=== PATIENT | female | born 1940 | race Caucasian/White ===

== ENCOUNTER 2017-04-12 10:56 | Observation (INO) | payer MEDICARE, BC ==
--- NOTE | ~2017-04-12 | CN ---
Consultation Report [facility] [address] [place]. [address] NAME: STEFFANY PARKER : 42 STATUS : ADM IN [facility]#: [id number] AGE: 77 ADM/REG DATE : 04/12/17 MR#: [id number] REPORT SERV DATE: 04/12/17 DICTATED BY: CHEMO IQBAL DATE: 04/12/17 REPORT STATUS : Draft TRANSCRIBED BY: RAY DATE: 04/12/17 DATE OF CONSULTATION: REASON FOR CONSULT: Possible COPD with progressive wheezing and shortness of breath. HISTORY OF PRESENT ILLNESS: This is a 77-year-old female who had been admitted through Cardiology for chest pain. On presentation to the emergency room, the patient would have a 12-lead EKG that would demonstrate a [address]-segment elevation in the inferior leads and would be taken for emergent ST-elevated cardiac cath. Her catheterization would demonstrate no flow-limiting on evaluation and would have a preserved EF of 60%. There was no evidence of clinically significant coronary heart disease, with a CHIN grade 3 flow noted in all of the patient's major coronary vessels. The patient was noted to have progressive shortness of breath and wheezing over a three-day period. She had just taken a flight to [place] and had been producing some frothy nbevh-jk-wriaje-colored sputum with a cough for several days. The patient has a history of smoking, although she apparently has quit some time ago and has no history of severe bronchitis or pneumonia that she is aware of. Chest x-ray here at the hospital did not reveal any signs of pneumonia, although the patient does come in with a white blood cell count of 19.5 to go along with her productive cough. PAST MEDICAL HISTORY: 1. Hypertension. 2. Possible mild COPD with remote history of smoking. 3. Seasonal allergies. 4. Gout. 5. History of PVCs. PAST SURGICAL HISTORY: Appendectomy and tonsillectomy. SOCIAL HISTORY: . Retired. Former smoker. No alcohol use or illicit drug use. FAMILY HISTORY: Negative for any previous CAD or CVA. REVIEW OF SYSTEMS: 14-point inspection of systems reviewed with patient and is negative aside for what was previously mentioned. HOME MEDICATIONS: 1. Indapamide 1.25 mg p.o. daily. 2. Mag-Ox 400 mg p.o. b.i.d. 3. Lopressor 25 mg p.o. b.i.d. 4. Allopurinol 100 mg p.o. daily. 5. Zyrtec 10 mg p.o. at bedtime. 6. Aspirin 325 mg p.o. daily. 7. Multivitamin one tablet daily. 8. Vitamin B12 one tablet p.o. daily. Consultation Report [address] [place]. [address] NAME: STEFFANY PARKER : 42 STATUS : ADM IN PAT#: [id number] AGE: 77 ADM/REG DATE : 04/12/17 MR#: [id number] REPORT SERV DATE: 04/12/17 DICTATED BY: CHEMO IQBAL DATE: 04/12/17 REPORT STATUS : Draft TRANSCRIBED BY: RAY DATE: 04/12/17 9. Vitamin D3 one tablet p.o. daily. ALLERGIES: POSITIVE ALLERGY TO SULFA DRUGS. PHYSICAL EXAMINATION: VITAL SIGNS: Blood pressure 113/59, heart rate 57, respirations 26, O2 saturation 94% on 2 L nasal cannula, temperature 98.8. GENERAL: The patient is a well-developed, well-nourished female, cooperative, no apparent distress. Awake. NEURO: The patient is alert and oriented x3. Moving all extremities spontaneously. No focal deficits. NECK: No JVD. LUNGS: Expiratory wheezing bilaterally with rhonchi, worse on the right than the left. CARDIOVASCULAR: The patient with some mild bradycardia but no murmurs auscultated. Regular rhythm. ABDOMEN: Soft, nontender. Active bowel sounds. EXTREMITIES: No edema. Normal distal pulses. LABORATORY DATA: Sodium 126, potassium 4.0, chloride 90, BUN 13, creatinine 0.61, glucose 103. Calcium 9.2, magnesium 2.0. White blood cell count 19.5, hemoglobin 13.7, hematocrit 38.9, platelets 348. INR 1.1. Troponin less than 0.02. EKG: Normal sinus rhythm with no ST-elevation noted. Chest x-ray, no acute abnormality noted, although the image is a little poor. ASSESSMENT AND PLAN: 1. Chest pain with ST abnormalities, taken for emergent cardiac cath, with no flow abnormalities or stenosis noted. No further plans for workup at this time from Cardiology. The patient is currently on aspirin and beta grace. 2. Chronic obstructive pulmonary disease and bronchitis. The patient possibly has mild underlying chronic bronchitis from her history of smoking. Definitely sounds to have some acute bronchitis with her wheezing and coughing up yellow sputum. Due to her elevated white cell count of 19.5, the patient was started on antibiotic, IV Levaquin. Agree with this for now. We will continue. Agree with the patient being started on prednisone. We will go ahead and also add Pulmicort Respules inhaled as well as DuoNeb scheduled q.4 hours. Use oxygen p.r.n. and titrate to keep O2 saturation 90% to 94%. We will go ahead and also add a procalcitonin to her blood in the lab and repeat chest x-ray in the morning, PA and lateral, to get a slightly better view of her lungs tomorrow in the morning. Would also consider potentially having a pulmonary function test after exacerbation has resolved outpatient. 3. Leukocytosis. Possibly secondary to pneumonia/bronchitis, but as I look back in her records, she has previously had an elevated white blood cell count of 17.5 back in August of last year. Question whether she has some chronic leukocytosis. We will recheck CBC in the morning. 4. Hypertension, currently on metoprolol. Blood pressure is currently well controlled. Continue. Consultation Report [address] [place]. [address] NAME: STEFFANY PARKER : 42 STATUS : ADM IN [facility]#: [id number] AGE: 77 ADM/REG DATE : 04/12/17 MR#: [id number] REPORT SERV DATE: 04/12/17 DICTATED BY: CHEMO IQBAL DATE: 04/12/17 REPORT STATUS : Draft TRANSCRIBED BY: MODL DATE: 04/12/17 5. Bradycardia. The patient is on beta grace. We will monitor heart rate closely. Hold beta-grace if heart rate less than 50. 6. Hyponatremia. The patient with a sodium of 126 on thiazide diuretic at home. We will go ahead and hold her thiazide diuretic and give her 1 L of normal saline at 125 an hour. We will go ahead and check CBC and BMP in the morning. Follow up on her sodium and leukocytosis. Thank you very much for this consult. Hospitalist will follow. Do not anticipate a long hospital stay. TDR/MODL Chemo Iqbal APN / [id number] CC: Alok Palomino MD
--- NOTE | ~2017-04-12 | HP ---
History And Physical [facility] [address] [place]. [address] NAME: STEFFANY PARKER : 42 STATUS : ADM IN [facility]#: [id number] AGE: 77 ADM/REG DATE : 04/12/17 MR#: [id number] REPORT SERV DATE: 04/12/17 DICTATED BY: SANTHOSH PALOMINO DATE: 04/12/17 REPORT STATUS : Draft TRANSCRIBED BY: RAY DATE: 04/12/17 DATE OF ADMISSION: 04/12/2017 CARDIOLOGY ADMISSION HISTORY AND PHYSICAL IDENTIFYING DATA: The patient is a 77-year-old woman with no known previous cardiovascular history. CHIEF COMPLAINT: Three-day history of progressive wheezing and shortness of breath. HISTORY OF PRESENT ILLNESS: Ms. Parker is a pleasant 77-year-old woman with no previous cardiovascular history. The patient was in her usual state of health until approximately three days ago. The patient apparently took a recent plane trip from [place]. She began to notice symptoms of wheezing, shortness of breath, and generalized fatigue. She attributed this to an infection from her air travel. However, the patient's symptoms continued to progress. She does describe some chest tightness, which had worsened this morning. The patient also had some associated diaphoresis. She presented to [facility] Emergency Room for further evaluation. A 12-lead EKG demonstrated [address]-segment elevation in the inferior leads with half a mm of ST-segment depression in lead aVL. The findings met criteria for an ST-segment elevation myocardial infarction. A code STEMI was therefore called. At this time, the patient does have ongoing shortness of breath, and symptoms which are suspicious for orthopnea. She reports mild ongoing chest tightness. PAST MEDICAL HISTORY: 1. Hypertension. 2. The patient denies any other major medical problems. PAST SURGICAL HISTORY: Significant for appendectomy, cholecystectomy, and otherwise noncontributory. FAMILY HISTORY: Negative for early coronary heart disease or sudden cardiac . SOCIAL HISTORY: The patient quit smoking approximately seventeen years ago. At this time, she reports no significant tobacco, alcohol, or drug use. ALLERGIES: THE PATIENT REPORTS ADVERSE REACTIONS TO SULFA DRUGS. HOME MEDICATIONS: 1. Allopurinol 100 mg p.o. daily. 2. Aspirin 325 mg daily. 3. Zyrtec 10 mg p.o. at bedtime. 4. Indapamide 1.25 mg p.o. daily. 5. Magnesium oxide 400 mg p.o. twice daily. 6. Metoprolol tartrate 25 mg p.o. twice daily. History And Physical [address] [place]. [address] NAME: STEFFANY PARKER : 42 STATUS : ADM IN PAT#: [id number] AGE: 77 ADM/REG DATE : 04/12/17 MR#: [id number] REPORT SERV DATE: 04/12/17 DICTATED BY: SANTHOSH PALOMINO DATE: 04/12/17 REPORT STATUS : Draft TRANSCRIBED BY: RAY DATE: 04/12/17 7. Multivitamin tablet one tablet daily. 8. Cyanocobalamin over the counter one tablet daily. 9. Vitamin D3 one tablet p.o. daily. REVIEW OF SYSTEMS: A complete 12-system review was performed. This is noncontributory except for the pertinent positives and negatives noted in the history of present illness above. PHYSICAL EXAMINATION: VITAL SIGNS: Temperature is 98.8 degrees Fahrenheit, blood pressure is 107/52 mmHg, heart rate is 63 beats per minutes and regular, respirations 19, oxygen saturation is 98% on a 2 L nasal cannula. CONSTITUTIONAL: The patient is an obese elderly white woman, in no acute distress, though she is mildly tachypneic. EYES: PERRL, EOMI, clear conjunctiva. HEAD/MNT: NCAT with moist mucous membranes and grossly normal hard and soft palate. NECK: Supple with no obvious thyromegaly or lymphadenopathy CARDIOVASCULAR: There is a regular rhythm with a normal S1 and a physiologically split second heart sound. No significant murmurs, rubs, or gallops are noted. The jugular venous pressure appears grossly normal. PULMONARY: There is diffuse inspiratory and expiratory wheezing noted throughout both lung duong bilaterally. There is no dullness to percussion. There is a prolonged expiratory phase. ABDOMINAL: Soft, non-tender, non-distended with no hepatosplenomegaly noted. EXTREMITIES: No clubbing, cyanosis or edema. MUSCULOSKELETAL: Grossly normal strength and range of motion in all extremities INTEGUMENTARY: Skin appears intact with no bruises, wounds or active lesions noted NEURO/PSYC: Alert and oriented x3, with no dysarthria, facial droop or lateralizing weakness noted. 12-LEAD EK-lead EKG shows sinus bradycardia with [address]-segment elevation in leads II, III, and AVF with one-half millimeter of ST-segment depression in lead aVL. The ST- segment elevation is concave upward, however technically the EKG does meet criteria for acute inferior myocardial infarction. CHEST X-RAY: The chest x-ray shows no acute cardiopulmonary process. There is mild calcification of the aortic knob noted. The cardiomediastinal silhouette is otherwise unremarkable. LABORATORY DATA: Electrolytes show a sodium of 126, potassium 4.0, chloride is 90, CO2 is 31, BUN 13, creatinine 0.6. GFR is 88, glucose is 103, calcium is 9.2, magnesium is 2.0. The patient's initial troponin is less than 0.02. CBC shows a white blood cell count of 19.5, hemoglobin 13.7, hematocrit 39, platelets 343, [place] [address], lymphocyte count is also high at 6.8. INR is 1.1. ASSESSMENT AND PLAN: History And Physical [address] [address] NAME: STEFFANY PARKER : 42 STATUS : ADM IN [facility]#: [id number] AGE: 77 ADM/REG DATE : 04/12/17 MR#: [id number] REPORT SERV DATE: 04/12/17 DICTATED BY: SANTHOSH PALOMINO DATE: 04/12/17 REPORT STATUS : Draft TRANSCRIBED BY: RAY DATE: 04/12/17 1. Evaluation for myocardial infarction: The patient was taken for emergency cardiac catheterization. Please see full report for full details. In summary, the patient was found to have a left dominant coronary system with otherwise normal coronary anatomy. There is no evidence of clinically significant coronary heart disease with CHIN grade 3 flow noted in all of the patient's major epicardial coronary vessels. The patient's left ventricular systolic function is mildly to moderately elevated with an EDP estimated at 20 mmHg. Left ventricular systolic function is normal with no significant wall motion abnormalities noted and a left ventricular ejection fraction of approximately 55% to 60%. The patient will be treated for chronic obstructive pulmonary disease exacerbation as outlined below. 2. Suspected bronchitis pneumonia/chronic obstructive pulmonary disease exacerbation. Blood cultures x2 will be obtained. The patient will be started on Levaquin. The patient will continue on p.o. prednisone. She was given IV Solu-Medrol in the emergency room. We will start levofloxacin after blood cultures. We will consult the Hospital Medicine Service to evaluate and treat as appropriate. 3. Hyponatremia: Possibly due to dehydration. We will discontinue indapamide. We will gently rehydrate as per post cath protocol. We will consider further rehydration with IV normal saline if necessary to restore the patient's serum sodium to normal limits. Again, we will request the Hospital Medicine Service to assist with management of hyponatremia. [facility]/MODL Santhosh Palomino MD / [id number] CC: Santhosh Palomino MD
[2017-04-12] MEDS ORDERED: MAGOX4 PO (11:15)
[2017-04-12] MEDS ORDERED: INDAPAMIDE1.25 MG PO (11:15)
[2017-04-12] MEDS ORDERED: Z100 PO (11:15)
[2017-04-12] MEDS ORDERED: LOP25 PO (11:15)
[2017-04-12] MEDS ORDERED: ZYRTEC ALLGY10 MG PO (11:16)
[2017-04-12] MEDS ORDERED: CENTRUM PO (11:16)
[2017-04-12] MEDS ORDERED: ASABAYER PO (11:16)
[2017-04-12] MEDS ORDERED: CYANOCOBALAMIN PO (11:16)
[2017-04-12 11:17] LABS: ER CBC TAT 0 Hrs 05 Mins; HEMATOCRIT 38.9 % (36.0-48.0); HEMOGLOBIN 13.7 g/dL (12.0-16.0); MANUAL DIFF YES %; MEAN CORPUS HGB CONC 35.2 g/dL (32.0-36.0); MEAN CORPUSCULAR HEMOGLOB 31.4 pg (26.0-34.0); MEAN PLATELET VOLUME 10.5 fL (9.2-13.0); PLATELET COUNT 348 10/3/uL (150-400); RBC DISTRIBUTION WIDTH 13.3 % (12.0-16.0); RED CELL COUNT 4.37 10/6/uL (4.0-5.6); WHITE BLOOD CELLS 19.5 10/3/uL (4.5-10.5)
[2017-04-12] MEDS ORDERED: VITAMIN D3 PO (11:17)
[2017-04-12 11:22] LABS: INTERNATIONAL NORMAL RATI 1.1 UNITS (-); PROTIME (NOT ORD) 13.6 SEC (12.0-14.5)
[2017-04-12 11:23] LABS: PARTIAL THROMBO TIME 37.3 SEC (22.5-37.2)
[2017-04-12 11:30] LABS: BUN (BLOOD UREA NITROGEN) 13 MG/DL (6-23); CALCIUM, SERUM 9.2 MG/DL (8.5-10.4); CHEST PAIN PROFILE TAT 0 Hrs 18 Mins; CO2 (CARBON DIOXIDE) 31 MMOL/L (24-34); CREATININE 0.61 MG/DL (0.55-1.02); GFR AFRICAN AMERICAN 102 ML/MIN (>=60); GFR NON AFRICAN AMERICAN 88 ML/MIN (>=60); GLUCOSE, SERUM 103 MG/DL (60-99); TROPONIN I <0.02 NG/ML (<0.05)
[2017-04-12 11:31] LABS: CHLORIDE, SERUM 90 MMOL/L (96-112); SODIUM, SERUM 126 MMOL/L (135-148)
[2017-04-12 11:47] LABS: BAND NEUTROPHILS 1 %; EOSINOPHILS 1 %; ER DIFF TAT 0 Hrs 35 Mins; LYMPHOCYTES 35 %; LYMPHOCYTES ABSOLUTE (CALC) 6.83 10/3/uL (0.67-4.30); MONOCYTES 5 %; MONOCYTES ABSOLUTE (CALC) 0.98 10/3/uL (0.21-1.20); NEUTROPHILS ABSOLUTE (CALC) 11.51 10/3/uL (2.02-8.40); SEGMENTED NEUTROPHIL (0) 58 %; TOTAL NUCLEATED CELLS 100
[2017-04-12 11:48] LABS: PLATELET ESTIMATE ADQ (ADEQUATE); RBC MORPHOLOGY NORM (NORMAL)
[2017-04-12 16:54] LABS: PROCALCITONIN <0.05 ng/mL (<0.5)
[2017-04-13 06:50] LABS: HEMATOCRIT 39.7 % (36.0-48.0); HEMOGLOBIN 13.8 g/dL (12.0-16.0); MANUAL DIFF YES %; MEAN CORPUS HGB CONC 34.8 g/dL (32.0-36.0); MEAN CORPUSCULAR VOLUME 89.2 fL (80-100); MEAN PLATELET VOLUME 10.2 fL (9.2-13.0); PLATELET COUNT 351 10/3/uL (150-400); RBC DISTRIBUTION WIDTH 13.3 % (12.0-16.0); RED CELL COUNT 4.45 10/6/uL (4.0-5.6); WHITE BLOOD CELLS 16.1 10/3/uL (4.5-10.5)
[2017-04-13 07:06] LABS: BUN (BLOOD UREA NITROGEN) 12 MG/DL (6-23); CALCIUM, SERUM 9.7 MG/DL (8.5-10.4); CHLORIDE, SERUM 96 MMOL/L (96-112); CO2 (CARBON DIOXIDE) 30 MMOL/L (24-34); CREATININE 0.63 MG/DL (0.55-1.02); GFR AFRICAN AMERICAN 101 ML/MIN (>=60); GFR NON AFRICAN AMERICAN 87 ML/MIN (>=60); GLUCOSE, SERUM 132 MG/DL (60-99); POTASSIUM, SERUM 4.1 MMOL/L (3.5-5.3); SODIUM, SERUM 132 MMOL/L (135-148)
[2017-04-13 07:13] LABS: BAND NEUTROPHILS 2 %; LYMPHOCYTES 44 %; LYMPHOCYTES ABSOLUTE (CALC) 7.08 10/3/uL (0.67-4.30); MONOCYTES 4 %; MONOCYTES ABSOLUTE (CALC) 0.64 10/3/uL (0.21-1.20); NEUTROPHILS ABSOLUTE (CALC) 8.37 10/3/uL (2.02-8.40); PLATELET ESTIMATE ADQ (ADEQUATE); RBC MORPHOLOGY NORM (NORMAL); SEGMENTED NEUTROPHIL (0) 50 %; TOTAL NUCLEATED CELLS 100
[2017-04-13] MEDS ORDERED: ASAB PO (11:21)
[2017-04-13] MEDS ORDERED: P20 PO (11:23)
[2017-04-13] MEDS ORDERED: PROVHFA INH (11:24)
[2017-04-13] MEDS ORDERED: LEVAQUIN750 MG PO (11:25)
[2017-04-13] MEDS ORDERED: PRIN5 PO (11:26)
== END 2017-04-13 18:48 | disposition home or self-care (01) ==
LOC: ER 10:56 → SSU2 11:40 → 5NO 17:48
PROVIDERS: Hospitalist; Internal Medicine Cardiovascular Disease
DX: I21.3 ST elevation (STEMI) myocardial infarction of unspecified site (principal); J44.9 Chronic obstructive pulmonary disease, unspecified; D72.829 Elevated white blood cell count, unspecified; I10 Essential (primary) hypertension; R00.1 Bradycardia, unspecified; E87.1 Hypo-osmolality and hyponatremia; J30.2 Other seasonal allergic rhinitis; M10.9 Gout, unspecified; Z90.49 Acquired absence of other specified parts of digestive tract; Z90.89 Acquired absence of other organs; Z87.891 Personal history of nicotine dependence; Z79.82 Long term (current) use of aspirin; Z79.899 Other long term (current) drug therapy; Z88.2 Allergy status to sulfonamides
CPT/HCPCS: 71010; 71020; 80048; 83735; 84145; 84484; 85025; 85610; 85730; 87040; 93005; 93458; 94640; 96374; 96375; 99152; 99285; A9270-GY; C1769; C1887; C1894; G0378; J0583; J1956; J2250; J2930; J3010; Q9967